=== PATIENT | female | born 1960 | race Caucasian/White ===

== ENCOUNTER 2018-07-11 17:24 | Emergency (ER) | payer OTHER ==
[~2018-07-11] VITALS: Ht 175.3 cm; Wt 96.2 kg
[2018-07-11 19:12] LABS: URINE BILIRUBIN NEGATIVE (Negative); URINE BLOOD 1+ (Negative); URINE COLOR YELLOW; URINE GLUCOSE-RANDOM* NEGATIVE (Negative); URINE KETONES NEGATIVE (Negative); URINE NITRITE-REFLEX NEGATIVE (Negative); URINE PROTEIN (DIPSTICK) NEGATIVE (Negative); URINE UROBILINOGEN 0.2 E.U./dl (0.2-1.0)
[2018-07-11 19:13] LABS: URINE CLARITY HAZY; URINE LEUKOCYTES-REFLEX 3+ (Negative)
[2018-07-11 19:19] LABS: SQUAMOUS >10 Many /LPF (0-3)
[2018-07-11 19:20] LABS: CASTS None Seen /LPF (None Seen); CRYSTALS None Seen /LPF (None Seen); RENAL EPITHELIAL CELLS 4-10 Moderate /LPF (None Seen); URINE WBC-REFLEX >25 Many /HPF (0-5)
[2018-07-11] MEDS ORDERED: SENNA8.6 MG PO (19:31)
[2018-07-11] MEDS ORDERED: KEFLEX500 M1 PO (19:31)
[2018-07-11] MEDS ORDERED: FLEET ENEMA EX230 ML RECTAL (20:47)
[2018-07-11] MEDS ORDERED: DIFLUCAN200 MG PO (20:55)
[2018-07-11 21:22] VITALS: BP 118/76
== END 2018-07-11 21:23 | disposition home or self-care (01) ==
LOC: ER 17:24
PROVIDERS: Physician Assistant
DX: K59.00 Constipation, unspecified (principal); R14.0 Abdominal distension (gaseous); N39.0 Urinary tract infection, site not specified; Z87.891 Personal history of nicotine dependence; Z88.5 Allergy status to narcotic agent

== ENCOUNTER 2019-05-27 15:10 | Emergency (ER) | payer OTHER ==
[~2019-05-27] VITALS: Ht 175.3 cm; Wt 93.0 kg
[~2019-05-27 15:10] MED LIST: DIFLUCAN200 MG PO; FLEET ENEMA EX230 ML RECTAL; KEFLEX500 M1 PO; SENNA8.6 MG PO
[2019-05-27] MEDS ORDERED: NORFLEX100 MG PO (16:23)
[2019-05-27] MEDS ORDERED: NORCO 5-325 TA1 EAC1 PO (16:23)
[2019-05-27] MEDS ORDERED: ULTRAM 50MG TAB50 MG PO (17:42)
[2019-05-27 17:52] VITALS: BP 146/90
== END 2019-05-27 17:52 | disposition home or self-care (01) ==
LOC: ER 15:10
DX: S39.012A Strain of muscle, fascia and tendon of lower back, initial encounter (principal); K58.9 Irritable bowel syndrome, unspecified; K21.9 Gastro-esophageal reflux disease without esophagitis; F31.9 Bipolar disorder, unspecified; Z90.89 Acquired absence of other organs; Z90.49 Acquired absence of other specified parts of digestive tract; Z90.710 Acquired absence of both cervix and uterus; Z88.5 Allergy status to narcotic agent; Z87.891 Personal history of nicotine dependence; X50.0XXA Overexertion from strenuous movement or load, initial encounter; Y92.89 Other specified places as the place of occurrence of the external cause; Y93.89 Activity, other specified; Y99.8 Other external cause status